=== PATIENT | female | born 1975 | race Two or more races ===

== ENCOUNTER 2016-09-03 21:56 | Emergency (ER) | payer OTHER ==
[2016-09-03 22:02] VITALS: BP 134/81; BMI 39.6
--- NOTE | 2016-09-03 22:45 | DR.GENAD ---
HPI - PCP Primary Care Physician: NFD - Complaint/Symptoms Chief Complaint Doctors Comments: Patient admits to cough,headache, chills, myalgia and sore throat for one week Chief Complaint:: PT C/O FEVER AND COUGH X 1 WEEK MY DAUGHTER HAD INFLU ABOUT A MONTH AGO - Source History Provided: Patient - Mode of Arrival Mode of Arrival: Ambulatory - Timing Onset of Chief Complaint: 08/27/16 PMH - PMH Past Medical History: No Past Surgical History: Yes Surgical History: , Cholecystectomy, Hysterectomy, Ortho Surgery - Family History History of Family Medical Conditions: Yes Family Medical History: Diabetes Mellitus, Hypertension - Social History Does patient currently use any type of tobacco product: No Have you used tobacco products in the last 12 months: No Type of Tobacco Use: None Does any household member use tobacco: No Alcohol Use: None Do you use any recreational Drugs:: No Lives With: Family Lives Where: Home - infectious screening In the last 2 months have you had wt loss of >10#?: NO Have you had fever, night sweats or hemotysis?: No Have you traveled outside the country in the last 6 months?: Yes Details about travelin MONTH AGO Isolation: Standard ROS - Review of Systems Constitutional: No Symptoms Reported Eyes: No Symptoms Reported ENTM: No Symptoms Reported Respiratoy: Non-Productive Cough Cardiovascular: No Symptoms Reported Gastrointestinal/Abdominal: No Symptoms Reported Genitourinary: No Symptoms Reported Neurological: Headache Musculoskeletal: Other (myalgia) Integumentary: No Symptoms Reported Hematologic/Lymphatic: No Symptoms Reported Endocrine: No Symptoms Reported Psychiatric: No Symptoms Reported All Other Systems: Reviewed and Negative PE - Vital Signs Vitals: Temperature 98.5 F Pulse Rate 100 Respiratory Rate 18 Blood Pressure [Left Arm] 118/69 Blood Pressure 134/81 O2 Sat by Pulse Oximetry 99 - General Limitations: No Limitations General Appearance: Alert, In No Apparent Distress - Head Head Exam: Normal Inspection, Atraumatic - Eyes Eye exam: Normal Appearance, PERRL, EOMI - ENT ENT Exam: Normal Exam, Normal Oropharynx, Normal External Ear Exam. negative: Mucous Membranes Dry External Ear Exam: Normal External Inspection TM/Canal Exam: Bilateral Normal Nose Exam: negative: Normal Nose Exam (rhinorrhea), Sinus Tenderness Mouth Exam: Normal Inspection Throat Exam: Normal Inspection - Neck Neck Exam: Normal Inspection - Chest Chest Inspection: Normal Inspection - Respiratory Respiratory Exam: Normal Lung Sounds Bilat Respiratory Exam: Bilateral Clear to Auscultation - Cardiovascular Cardiovascular Exam: Regular Rate, Normal Rhythm - Abdominal Exam Abdominal Exam: Normal Inspection Abdominal Tenderness: negative: RUQ, RLQ, LUQ, LLQ, Epigastrium, Suprapubic, Diffuse, Mild, Moderate, Severe, Other - Extremities Extremities Exam: Normal Inspection - Back Back Exam: Normal Inspection - Neurologic Neurological Exam: Alert, Oriented X3, CN II-XII Intact - Skin Skin Exam: Warm, Dry, Intact Course - Reevaluation 1st: Unchanged ROR - Labs Reviewed Laboratory Results Reviewed?: Yes (strep negative) Laboratory: Streptococcus Screen Negative (NEGATIVE) 09/03/16 22:46 - XRAY XRAY Interpreted by: Radiologist (Chest: negative) - Diagnosis Discharge Problem: Upper respiratory infection Qualifiers: URI type: unspecified viral URI Qualified Code(s): J06.9 - Acute upper respiratory infection, unspecified; B97.89 - Other viral agents as the cause of diseases classified elsewhere - Discharge Plan Condition: Stable - Follow ups/Referrals Follow ups/Referrals: NFD,None [Primary Care Provider] - 3 days - Instructions
--- NOTE | 2016-09-03 23:09 | RAD ---
HISTORY: Cough Study: PA and lateral Comparison: Findings: The trachea is midline. The cardiac silhouette is unremarkable. The lungs are clear without focal infiltrate or effusion. The bony thorax is unremarkable. IMPRESSION: Stable chest with no acute abnormality seen. Reported By:
[2016-09-03] MEDS ORDERED: PHENERGAN W/CODEINE 6.25MG/10MG PO ONE (23:19)
[2016-09-03] MEDS ORDERED: PHENERGAN W/CODEINE 6.25MG/10MG ONE (23:23)
== END 2016-09-03 23:33 | disposition home or self-care (01) ==
LOC: ER 21:56
DX: J06.9 Acute upper respiratory infection, unspecified (principal)
CPT/HCPCS: 71020; 87070; 87880; 99282; 99283

== ENCOUNTER 2016-09-10 19:57 | Emergency (ER) | payer OTHER ==
[2016-09-10 20:12] VITALS: BP 114/73; BMI 39.6
--- NOTE | 2016-09-10 20:34 | DR.GENAD ---
HPI - PCP Primary Care Physician: NAS - HPI Comment HPI Comment: HISTORY BELOW. - Complaint/Symptoms Chief Complaint Doctors Comments: PERSISTENT COUGH, FEVER AND CHEST PAIN, TOOK ALEGRA AND PHERENERGAN WITH CODEINE BUT NO IMPROVEMENT GETTING WORSE. Chief Complaint:: PT C/O COUGH GOING ON 18 DAYS PT HAS HAD PHENERGAN WITH CODIENE AND MEDROL DOSE MANNY PT HAS COMPLETED THIS MEDICATION. PT STATES' THE COUGH IS NOT ANY BETTER I CAN HEAR MYSELF WHEEZING AT NIGHT" - Nurses notes reviewed Nurses Notes Review: Yes - Source History Provided: Patient - Mode of Arrival Mode of Arrival: Ambulatory - Timing Onset of Chief Complaint: 08/21/16 Came on: Gradually - Duration Duration: Constant Duration: Weeks - Severity Severity: Moderate PMH - PMH Past Medical History: No Past Surgical History: Yes Surgical History: , Cholecystectomy, Hysterectomy, Ortho Surgery - Family History History of Family Medical Conditions: Yes Family Medical History: Diabetes Mellitus, Hypertension - Social History Do you use any recreational Drugs:: No Lives Where: Home - infectious screening In the last 2 months have you had wt loss of >10#?: NO Have you had fever, night sweats or hemotysis?: No Have you traveled outside the country in the last 6 months?: Yes Details about traveling: [place] 6 WEEKS AGO Isolation: Standard ROS - Review of Systems Constitutional: Chills, Fever, Weakness, Fatigue Eyes: No Symptoms Reported. negative: Eye Pain, Discharge ENTM: Nose Congestion. negative: Ear Pain, Nose Discharge, Throat Pain Respiratoy: Productive Cough, Short of Breath, Wheezing Cardiovascular: Chest Pain Gastrointestinal/Abdominal: No Symptoms Reported Genitourinary: No Symptoms Reported Neurological: No Symptoms Reported Musculoskeletal: No Symptoms Reported Integumentary: No Symptoms Reported Hematologic/Lymphatic: No Symptoms Reported Endocrine: No Symptoms Reported All Other Systems: Reviewed and Negative PE - Vital Signs Vitals: Temperature 98.2 F Pulse Rate 104 Respiratory Rate 18 Blood Pressure [Left Arm] 118/69 Blood Pressure 114/73 O2 Sat by Pulse Oximetry 98 - General Limitations: No Limitations General Appearance: Alert - Head Head Exam: Normal Inspection - Eyes Eye exam: Normal Appearance - ENT ENT Exam: Normal External Ear Exam External Ear Exam: Normal External Inspection TM/Canal Exam: Bilateral Bulging Nose Exam: Normal Nose Exam Mouth Exam: Normal Inspection Throat Exam: Normal Inspection - Neck Neck Exam: Trachea Midline. negative: Tenderness, Meningismus, Lymphadenopathy - Chest Chest Inspection: Symmetric Chest Wall Rise - Respiratory Respiratory Exam: Normal Lung Sounds Bilat Respiratory Exam: Bilateral Clear to Auscultation - Cardiovascular Cardiovascular Exam: Regular Rate, Normal Rhythm, Normal Heart Sounds - Abdominal Exam Abdominal Exam: Normal Bowel Sounds, Soft. negative: Tenderness - Extremities Extremities Exam: Normal Inspection - Back Back Exam: Normal Inspection - Neurologic Neurological Exam: Alert, Oriented X3 - Psychiatric Psychiatric Exam: Anxious - Skin Skin Exam: Normal Color MDM - Additional Information Additional Information Obtained From: Family - Differential Diagnosis Differential Diagnosis: PERSISTENT COUGH, PNEUMONIA, BRONCHITIS Course - Treatment Treatment: SEE ORDERS. - Education/Counseling Education/Counseling: Patient, Family, Education Educated On: Diagnosis ROR - Labs Reviewed Result Diagrams: 09/10/16 20:42 09/10/16 20:42 Laboratory: WBC 11.5 X10^3/uL (3.6-10.0) H 09/10/16 20:42 RBC 4.09 X10^6/uL (3.5-5.4) 09/10/16 20:42 Hgb 12.4 g/dL (12.0-16.0) 09/10/16 20:42 Hct 37.0 % (36.0-47.0) 09/10/16 20:42 MCV 90.4 fL (80.0-100.0) 09/10/16 20:42 MCH 30.4 pg (27.0-34.0) 09/10/16 20:42 MCHC 33.6 g/dL (33.0-35.0) 09/10/16 20:42 RDW 13.4 % (11.6-16.5) 09/10/16 20:42 Plt Count 330 X10^3/uL (150.0-450.0) 09/10/16 20:42 MPV 8.3 fL (7.4-11.0) 09/10/16 20:42 Neut % 64.8 % (42.0-75.0) 09/10/16 20:42 Lymph % 26.9 % (21.0-51.0) 09/10/16 20:42 [place] % 4.3 % (0.0-13.0) 09/10/16 20:42 Eos % 3.3 % (0.9-2.9) H 09/10/16 20:42 Baso % 0.7 % (0.2-1.0) 09/10/16 20:42 Neut # 7.4 x10^3/uL (2.2-4.8) H 09/10/16 20:42 Lymph # 3.1 X10^3/uL (1.3-2.9) H 09/10/16 20:42 [place] # 0.5 x10^3/uL (0.3-0.8) 09/10/16 20:42 Eos # 0.4 x10^3/uL (0.0-0.2) H 09/10/16 20:42 Baso # 0.1 X10^3/uL (0.0-0.1) 09/10/16 20:42 Absolute Nucleated RBC 0.0 /100WBC 09/10/16 20:42 Sample Site [facility] 09/10/16 21:37 ABG pH 7.430 (7.35-7.45) 09/10/16 21:37 ABG pCO2 40.0 mmHg (35.0-45.0) 09/10/16 21:37 ABG pO2 82.0 mmHg (80.0-100.0) 09/10/16 21:37 ABG HCO3 26.5 mmol/L (22-26) H 09/10/16 21:37 ABG O2 Saturation 96.0 % (90-100) 09/10/16 21:37 ABG Base Excess 2.0 mmol/L (-2.0-2.0) 09/10/16 21:37 Ike Test Na 09/10/16 21:37 A-a Gradient 18.0 mmHg 09/10/16 21:37 FiO2 21.000 09/10/16 21:37 Blood Gas Comments Madie abg well-mtf 09/10/16 21:37 Sodium 142 mmol/L (136-145) 09/10/16 20:42 Corrected Sodium 143 mmol/L (136-145) 09/10/16 20:42 Potassium 3.3 mmol/L (3.5-5.1) L 09/10/16 20:42 Chloride 105 mmol/L (98-107) 09/10/16 20:42 Carbon Dioxide 24.2 mmol/L (21-32) 09/10/16 20:42 BUN 9 mg/dL (7-18) 09/10/16 20:42 Creatinine 0.87 mg/dL (0.55-1.02) 09/10/16 20:42 Est GFR (MDRD) Af Amer > 60 (>60) 09/10/16 20:42 Est GFR (MDRD) Non-Af > 60 (>60) 09/10/16 20:42 Glucose 136 mg/dL (65-99) H 09/10/16 20:42 Calcium 8.5 mg/dL (8.5-10.1) 09/10/16 20:42 Corrected Calcium 9.3 mg/dL (8.5-10.1) 09/10/16 20:42 Total Bilirubin 0.30 mg/dL (0.2-1.0) 09/10/16 20:42 AST 18 Units/L (15-37) 09/10/16 20:42 ALT 24 Units/L (12-78) 09/10/16 20:42 Alkaline Phosphatase 52 Units/L (46-116) 09/10/16 20:42 Total Protein 7.5 g/dL (6.4-8.2) 09/10/16 20:42 Albumin 3.0 g/dL (3.4-5.0) L 09/10/16 20:42 Globulin 4.5 g/dL (2.5-4.5) 09/10/16 20:42 Albumin/Globulin Ratio 0.7 Ratio (1.1-2.1) L 09/10/16 20:42 Specimen Type Clean catch urine 09/10/16 21:06 Urine Color Yellow (YELLOW) 09/10/16 21:06 Urine Appearance Slightly hazy (CLEAR) 09/10/16 21:06 Urine pH 5.0 (5.0 - 8.0) 09/10/16 21:06 Ur Specific [place] 1.030 (1.000-1.030) 09/10/16 21:06 Urine Protein 1+ (NEGATIVE) 09/10/16 21:06 Urine Glucose (UA) Negative (NEGATIVE) 09/10/16 21:06 Urine Ketones Negative (NEGATIVE) 09/10/16 21:06 Urine Occult Blood 2+ (NEGATIVE) 09/10/16 21:06 Urine Nitrite Negative (NEGATIVE) 09/10/16 21:06 Urine Bilirubin Negative (NEGATIVE) 09/10/16 21:06 Urine Urobilinogen Normal (NORMAL) 09/10/16 21:06 Ur Leukocyte Esterase 1+ (NEGATIVE) 09/10/16 21:06 Urine RBC 0-3 /HPF (NEGATIVE) 09/10/16 21:06 Urine WBC 3-5 /HPF (NEGATIVE) 09/10/16 21:06 Ur Squamous Epith Cells Moderate /HPF (NEGATIVE) 09/10/16 21:06 Urine Bacteria 1+ /HPF (NEGATIVE) 09/10/16 21:06 Urine Mucus Moderate /HPF (NEGATIVE) 09/10/16 21:06 Ur Culture Indicated? No/not indicated 09/10/16 21:06 Influenza A (H1N1) PCR Not detected (NOT DETECT) 09/10/16 21:27 Influenza Type A (PCR) Negative (NEGATIVE) 09/10/16 21:27 Influenza Type B (PCR) Negative (NEGATIVE) 09/10/16 21:27 - Diagnosis Discharge Problem: Bronchitis, Cough - Discharge Plan Disposition: 01 HOME, SELF-CARE Condition: Stable Prescriptions: Amoxicillin [Amoxil 875 mg] 875 mg PO BID #20 tab Benzonatate [TESSALON PERLES *] 200 mg PO TID PRN #30 cap PRN Reason: Cough - Follow ups/Referrals Follow ups/Referrals: NFD,None [Primary Care Provider] - 3 days - Instructions Instructions: Acute Bronchitis, Cough, Adult, [id number]
[2016-09-10 20:57] LABS: BASOPHILS # (AUTO) 0.1 X10^3/uL (0.0-0.1); BASOPHILS % (AUTO) 0.7 % (0.2-1.0); EOSINOPHILS # (AUTO) 0.4 x10^3/uL (0.0-0.2); EOSINOPHILS % (AUTO) 3.3 % (0.9-2.9); HEMOGLOBIN 12.4 g/dL (12.0-16.0); LYMPHOCYTES # (AUTO) 3.1 X10^3/uL (1.3-2.9); LYMPHOCYTES % (AUTO) 26.9 % (21.0-51.0); MEAN CORPUSCULAR HEMOGLOBIN 30.4 pg (27.0-34.0); MEAN CORPUSCULAR HGB CONC 33.6 g/dL (33.0-35.0); MEAN CORPUSCULAR VOLUME 90.4 fL (80.0-100.0); MEAN PLATELET VOLUME 8.3 fL (7.4-11.0); MONOCYTES # (AUTO) 0.5 x10^3/uL (0.3-0.8); MONOCYTES % (AUTO) 4.3 % (0.0-13.0); NEUTROPHILS # (AUTO) 7.4 x10^3/uL (2.2-4.8); NEUTROPHILS % (AUTO) 64.8 % (42.0-75.0); PLATELET COUNT 330 X10^3/uL (150.0-450.0); RED BLOOD COUNT 4.09 X10^6/uL (3.5-5.4); RED CELL DISTRIBUTION WIDTH 13.4 % (11.6-16.5); WHITE BLOOD COUNT 11.5 X10^3/uL (3.6-10.0)
[2016-09-10 21:05] LABS: ALANINE AMINOTRANSFERASE 24 Units/L (12-78); ALKALINE PHOSPHATASE 52 Units/L (46-116); ASPARTATE AMINO TRANSFERASE 18 Units/L (15-37); BLOOD UREA NITROGEN 9 mg/dL (7-18); CALCIUM 8.5 mg/dL (8.5-10.1); CARBON DIOXIDE 24.2 mmol/L (21-32); CHLORIDE 105 mmol/L (98-107); COR CA(FOR HYPOALB) 9.3 mg/dL (8.5-10.1); COR NA(FOR HYPERGLY) 143 mmol/L (136-145); CREATININE 0.87 mg/dL (0.55-1.02); GLUCOSE 136 mg/dL (65-99); SODIUM 142 mmol/L (136-145); TOTAL PROTEIN 7.5 g/dL (6.4-8.2); eGFR BLACK RACES > 60 (>60); eGFR NON BLACK RACES > 60 (>60)
--- NOTE | 2016-09-10 21:08 | RAD ---
EXAM: Chest X-ray INDICATION: Cough COMPARISION: Prior exam from September 03, 2016 TECHNIQUE: AP, single view FINDINGS: The lungs are clear in the lung volumes are within normal limits. No pleural effusion or pneumothora x. The cardiac silhouette and mediastinum are normal. The regional skeleton is intact. IMPRESSION: Normal Chest X-Ray Reported By:
[2016-09-10] MEDS ORDERED: POTASSIUM CHLORIDE LIQ 20 MEQ UDC PO ONE (21:13)
[2016-09-10 21:16] LABS: BILIRUBIN,URINE NEGATIVE (NEGATIVE); BLOOD/HEMOGLOBIN,URINE 2+ (NEGATIVE); GLUCOSE, URINE NEGATIVE (NEGATIVE); KETONES,URINE NEGATIVE (NEGATIVE); LEUKOCYTE ESTERASE ,URINE 1+ (NEGATIVE); NITRITES,URINE NEGATIVE (NEGATIVE); PROTEIN,URINE 1+ (NEGATIVE); UROBILINOGEN,URINE NORMAL (NORMAL)
[2016-09-10 21:24] LABS: APPEARANCE,URINE SLIGHTLY HAZY (CLEAR); BACTERIA,URINE 1+ /HPF (NEGATIVE); COLOR,URINE YELLOW (YELLOW); MUCUS,URINE MODERATE /HPF (NEGATIVE); RBC,URINE 0-3 /HPF (NEGATIVE); SQUAMOUS EPITHELIAL CELL,UR MODERATE /HPF (NEGATIVE)
[2016-09-10] MEDS ORDERED: POTASSIUM CHLORIDE LIQ 20 MEQ UDC ONE (21:32)
[2016-09-10 21:39] LABS: ABG HCO3 26.5 mmol/L (22-26)
[2016-09-10] MEDS ORDERED: AMOXIL CAP 500 MG PO ONE (21:52)
[2016-09-10] MEDS ORDERED: TESSALON PERLES PO ONE (21:54)
== END 2016-09-10 22:17 | disposition home or self-care (01) ==
LOC: ER 19:57
DX: J40 Bronchitis, not specified as acute or chronic (principal); R05 Cough
CPT/HCPCS: 36415; 36600; 71010; 80053; 81001; 82803; 85025; 87502; 87503; 99283

== ENCOUNTER 2017-03-10 19:35 | Emergency (ER) | payer SELFPAY ==
[2017-03-10 19:46] VITALS: BMI 36.8
--- NOTE | 2017-03-10 21:33 | DR.GENAD ---
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 Past Surgical History Comment: PARITAL HYSTERCTOMY - Family History History of Family Medical Conditions: Yes Family Medical History: Diabetes Mellitus, Hypertension - Social History Does any household member use tobacco: No Alcohol Use: None Do you use any recreational Drugs:: No Lives With: Family Lives Where: Home - infectious screening In the last 2 months have you had wt loss of >10#?: NO Have you had fever, night sweats or hemotysis?: No Have you traveled outside the country in the last 6 months?: No Isolation: Standard ROS - Review of Systems Eyes: No Symptoms Reported ENTM: No Symptoms Reported Respiratoy: No Symptoms Reported Cardiovascular: No Symptoms Reported Gastrointestinal/Abdominal: No Symptoms Reported Genitourinary: No Symptoms Reported Neurological: No Symptoms Reported Musculoskeletal: No Symptoms Reported Integumentary: No Symptoms Reported Hematologic/Lymphatic: No Symptoms Reported Endocrine: No Symptoms Reported Psychiatric: No Symptoms Reported All Other Systems: Reviewed and Negative PE - Vital Signs Vitals: Temperature 98.2 F Pulse Rate 77 Respiratory Rate 18 Blood Pressure [Left Arm] 118/69 Blood Pressure 107/69 O2 Sat by Pulse Oximetry 98 - General Limitations: No Limitations General Appearance: Alert, In No Apparent Distress - Head Head Exam: Normal Inspection, Atraumatic - Eyes Eye exam: PERRL, EOMI - ENT ENT Exam: Normal Exam External Ear Exam: Normal External Inspection TM/Canal Exam: Bilateral Normal Nose Exam: Normal Nose Exam Mouth Exam: Normal Inspection Throat Exam: Normal Inspection - Neck Neck Exam: Normal Inspection, Full ROM - Chest Chest Inspection: Normal Inspection - Respiratory Respiratory Exam: Normal Lung Sounds Bilat Respiratory Exam: Bilateral Clear to Auscultation - Cardiovascular Cardiovascular Exam: Regular Rate - Abdominal Exam Abdominal Exam: Normal Inspection, Normal Bowel Sounds Abdominal Tenderness: negative: RUQ, RLQ, LUQ, LLQ, Epigastrium, Suprapubic, Diffuse, Mild, Moderate, Severe, Other - Extremities Extremities Exam: Normal Inspection, Full ROM - Back Back Exam: Normal Inspection, Full ROM - Neurologic Neurological Exam: Alert, Oriented X3, CN II-XII Intact - Psychiatric Psychiatric Exam: Normal Affect - Skin Skin Exam: Warm, Dry, Intact Course - Reevaluation 1st: Improved ROR - Labs Reviewed Result Diagrams: 03/10/17 21:50 03/10/17 21:50 Laboratory: WBC 8.5 X10^3/uL (3.6-10.0) 03/10/17 21:50 RBC 4.36 X10^6/uL (3.5-5.4) 03/10/17 21:50 Hgb 13.2 g/dL (12.0-16.0) 03/10/17 21:50 Hct 38.7 % (36.0-47.0) 03/10/17 21:50 MCV 88.8 fL (80.0-100.0) 03/10/17 21:50 MCH 30.2 pg (27.0-34.0) 03/10/17 21:50 MCHC 34.0 g/dL (33.0-35.0) 03/10/17 21:50 RDW 14.0 % (11.6-16.5) 03/10/17 21:50 Plt Count 298 X10^3/uL (150.0-450.0) 03/10/17 21:50 MPV 8.7 fL (7.4-11.0) 03/10/17 21:50 Neut % 67.3 % (42.0-75.0) 03/10/17 21:50 Lymph % 24.3 % (21.0-51.0) 03/10/17 21:50 [place] % 5.2 % (0.0-13.0) 03/10/17 21:50 Eos % 2.4 % (0.9-2.9) 03/10/17 21:50 Baso % 0.8 % (0.2-1.0) 03/10/17 21:50 Neut # 5.7 x10^3/uL (2.2-4.8) H 03/10/17 21:50 Lymph # 2.1 X10^3/uL (1.3-2.9) 03/10/17 21:50 [place] # 0.4 x10^3/uL (0.3-0.8) 03/10/17 21:50 Eos # 0.2 x10^3/uL (0.0-0.2) 03/10/17 21:50 Baso # 0.1 X10^3/uL (0.0-0.1) 03/10/17 21:50 Absolute Nucleated RBC 0.0 /100WBC 03/10/17 21:50 Sodium 138 mmol/L (136-145) 03/10/17 21:50 Corrected Sodium TNP 03/10/17 21:50 Potassium 4.4 mmol/L (3.5-5.1) 03/10/17 21:50 Chloride 103 mmol/L (98-107) 03/10/17 21:50 Carbon Dioxide 29.9 mmol/L (21-32) 03/10/17 21:50 BUN 10 mg/dL (7-18) 03/10/17 21:50 Creatinine 0.81 mg/dL (0.55-1.02) 03/10/17 21:50 Est GFR (MDRD) Af Amer > 60 (>60) 03/10/17 21:50 Est GFR (MDRD) Non-Af > 60 (>60) 03/10/17 21:50 Glucose 103 mg/dL (65-99) H 03/10/17 21:50 Calcium 9.1 mg/dL (8.5-10.1) 03/10/17 21:50 Corrected Calcium 9.7 mg/dL (8.5-10.1) 03/10/17 21:50 Total Bilirubin 0.40 mg/dL (0.2-1.0) 03/10/17 21:50 AST 31 Units/L (15-37) 03/10/17 21:50 ALT 50 Units/L (12-78) 03/10/17 21:50 Alkaline Phosphatase 74 Units/L (46-116) 03/10/17 21:50 Total Protein 8.3 g/dL (6.4-8.2) H 03/10/17 21:50 Albumin 3.2 g/dL (3.4-5.0) L 03/10/17 21:50 Globulin 5.1 g/dL (2.5-4.5) H 03/10/17 21:50 Albumin/Globulin Ratio 0.6 Ratio (1.1-2.1) L 03/10/17 21:50 - Diagnosis Discharge Problem: acute viral ilness - Discharge Plan Condition: Stable - Follow ups/Referrals Follow ups/Referrals: NFD,None [Primary Care Provider] - 3 days - Instructions
[2017-03-10] MEDS ORDERED: PHENERGAN INJ 25 MG IV ONE (21:41)
[2017-03-10] MEDS ORDERED: NS 1000 ML 1,000 ML IV ONE (21:41)
[2017-03-10] MEDS ORDERED: NS 1000 ML 1,000 ML ONE (21:46)
[2017-03-10] MEDS ORDERED: PHENERGAN INJ 25 MG ONE (21:46)
[2017-03-10 22:00] LABS: BASOPHILS # (AUTO) 0.1 X10^3/uL (0.0-0.1); BASOPHILS % (AUTO) 0.8 % (0.2-1.0); EOSINOPHILS # (AUTO) 0.2 x10^3/uL (0.0-0.2); EOSINOPHILS % (AUTO) 2.4 % (0.9-2.9); HEMATOCRIT 38.7 % (36.0-47.0); HEMOGLOBIN 13.2 g/dL (12.0-16.0); LYMPHOCYTES # (AUTO) 2.1 X10^3/uL (1.3-2.9); LYMPHOCYTES % (AUTO) 24.3 % (21.0-51.0); MEAN CORPUSCULAR HEMOGLOBIN 30.2 pg (27.0-34.0); MEAN CORPUSCULAR VOLUME 88.8 fL (80.0-100.0); MEAN PLATELET VOLUME 8.7 fL (7.4-11.0); MONOCYTES # (AUTO) 0.4 x10^3/uL (0.3-0.8); MONOCYTES % (AUTO) 5.2 % (0.0-13.0); NEUTROPHILS # (AUTO) 5.7 x10^3/uL (2.2-4.8); NEUTROPHILS % (AUTO) 67.3 % (42.0-75.0); PLATELET COUNT 298 X10^3/uL (150.0-450.0); RED BLOOD COUNT 4.36 X10^6/uL (3.5-5.4); WHITE BLOOD COUNT 8.5 X10^3/uL (3.6-10.0)
[2017-03-10 22:08] LABS: ALANINE AMINOTRANSFERASE 50 Units/L (12-78); ALBUMIN 3.2 g/dL (3.4-5.0); ALKALINE PHOSPHATASE 74 Units/L (46-116); ASPARTATE AMINO TRANSFERASE 31 Units/L (15-37); BLOOD UREA NITROGEN 10 mg/dL (7-18); CALCIUM 9.1 mg/dL (8.5-10.1); CARBON DIOXIDE 29.9 mmol/L (21-32); CHLORIDE 103 mmol/L (98-107); COR CA(FOR HYPOALB) 9.7 mg/dL (8.5-10.1); CREATININE 0.81 mg/dL (0.55-1.02); SODIUM 138 mmol/L (136-145); TOTAL PROTEIN 8.3 g/dL (6.4-8.2); eGFR BLACK RACES > 60 (>60); eGFR NON BLACK RACES > 60 (>60)
[2017-03-10 23:18] VITALS: BP 124/82
== END 2017-03-10 23:12 | disposition home or self-care (01) ==
LOC: ER 19:35
DX: R11.10 Vomiting, unspecified (principal); B34.9 Viral infection, unspecified
CPT/HCPCS: 36415; 80053; 85025; 96365; 96372; 96374; 99283; A4222; J2550

== ENCOUNTER 2017-08-31 17:19 | Emergency (ER) | payer OTHER ==
[2017-08-31 17:22] VITALS: BP 136/80; BMI 39.3
--- NOTE | 2017-08-31 17:38 | RAD ---
Examination: Right hand, three views History: Car door injury 4th finger Findings: There is an acute minimally displaced fracture involving the tuft of the distal phalanx, 4t h finger. There is surrounding soft tissue swelling but no evidence for joint space involvement or ra diopaque foreign body. Impression: Fracture distal phalanx right 4th finger. Reported By:
[2017-08-31] MEDS ORDERED: TORADOL 30 MG VIAL IM ONE (17:39)
[2017-08-31] MEDS ORDERED: TORADOL 60 MG VIAL ONE (17:50)
--- NOTE | 2017-08-31 18:19 | DR.GENAD ---
HPI - PCP Primary Care Physician: sánchez - Complaint/Symptoms Chief Complaint:: patient stated the carport door slammed on her right hand and smashed her fingers. swelling and brusing noted to 3rd and 4th digit. 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 - Family History History of Family Medical Conditions: Yes Family Medical History: Diabetes Mellitus, Hypertension - Social History Does patient currently use any type of tobacco product: No Have you used tobacco products in the last 12 months: No Type of Tobacco Use: None Does any household member use tobacco: No Do you use any recreational Drugs:: No Lives With: Family Lives Where: Home - infectious screening In the last 2 months have you had wt loss of >10#?: NO Have you had fever, night sweats or hemotysis?: No Have you traveled outside the country in the last 6 months?: No Isolation: Standard ROS - Review of Systems Constitutional: No Symptoms Reported Eyes: No Symptoms Reported ENTM: No Symptoms Reported Respiratoy: No Symptoms Reported Cardiovascular: No Symptoms Reported Gastrointestinal/Abdominal: No Symptoms Reported Genitourinary: No Symptoms Reported Neurological: No Symptoms Reported Musculoskeletal: Right, Hand Integumentary: No Symptoms Reported Hematologic/Lymphatic: No Symptoms Reported Endocrine: No Symptoms Reported Psychiatric: No Symptoms Reported All Other Systems: Reviewed and Negative PE - Vital Signs Vitals: Temperature 98.1 F Pulse Rate 83 Respiratory Rate 18 Blood Pressure [Left Arm] 124/82 Blood Pressure 136/80 O2 Sat by Pulse Oximetry 98 - General Limitations: No Limitations General Appearance: Alert, In No Apparent Distress - Head Head Exam: Normal Inspection - Eyes Eye exam: Normal Appearance - ENT ENT Exam: Normal Exam - Neck Neck Exam: Normal Inspection, Full ROM, Trachea Midline - Chest Chest Inspection: Normal Inspection - Respiratory Respiratory Exam: Normal Lung Sounds Bilat Respiratory Exam: Bilateral Clear to Auscultation - Cardiovascular Cardiovascular Exam: Regular Rate, Normal Rhythm, Normal Heart Sounds - Abdominal Exam Abdominal Exam: Normal Bowel Sounds, Soft ROR - XRAY XRAY Interpreted by: Radiologist XRAY Findings: min displaced fx distal phalynx rt 4th finger, nothing else acute - Diagnosis Discharge Problem: Finger fracture, right - Discharge Plan Disposition: HOME, SELF-CARE Condition: Stable Prescriptions: Hydrocodone-Acet 5 mg/325 mg [Dale 5/325 mg Tab] 1 tab PO Q6H PRN #12 tab PRN Reason: Pain Ketorolac Tromethamine 10 mg PO TID #12 tablet - Follow ups/Referrals Follow ups/Referrals: YEFRI SÁNCHEZ [Primary Care Provider] - 3 days - Instructions Instructions: Cast or Splint Care, Adult, [id number], Finger Fracture Additional Notes - Additional Notes Additional Notes: rt hand 3rd, 4th fingers swollen, tender. No lac, no nail avulsion. flexion, ext normal but with pain
== END 2017-08-31 18:37 | disposition home or self-care (01) ==
LOC: ER 17:26
DX: S62.634A Displaced fracture of distal phalanx of right ring finger, initial encounter for closed fracture (principal); W23.1XXA Caught, crushed, jammed, or pinched between stationary objects, initial encounter; Y92.9 Unspecified place or not applicable
CPT/HCPCS: 73130; 96372; 99282; J1885